=== PATIENT | male | born 1965 | race Two or more races ===

== ENCOUNTER 2016-10-26 18:13 | Emergency (ER) | payer MEDICAID ==
[~2016-10-26] VITALS: Ht 160 cm; Wt 68.0 kg
[2016-10-26 20:35] LABS: DEFINITIVE VIEW TRANSMISSION; Hematocrit 41.1 % (41.0-53.0); Hemoglobin 13.6 g/dL (13.5-17.5); Mean Corpuscular Hemoglobin 29.2 pg (28.0-32.0); Mean Corpuscular Volume 88.5 fL (80.0-100.0); Mean Platelet Volume 8.6 fL (7.4-10.4); Platelet Count (auto) 295 10^3/uL (140-450); Red Cell Distribution Width 12.4 % (11.6-16.0); White Blood Cell 9.6 10^3/uL (4.4-10.8)
[2016-10-26 20:54] LABS: Metamyelocytes % 0; Myelocytes % 0; Promyelocytes % 0; Reactive Lymphocytes 0
[2016-10-26 21:03] LABS: Albumin 3.7 g/dL (3.4-5.0); Bilirubin, Total 0.2 mg/dL (0.2-1.0); Calcium 8.4 mg/dL (8.5-10.1); Potassium 3.5 mmol/L (3.5-5.1); Total Protein 7.7 g/dL (6.4-8.2)
[2016-10-26 21:05] LABS: INR 0.99 (0.9-1.15); Partial Thromboplastin Time 26.2 sec (22.64-33.71); Prothrombin Time 10.2 sec (9.37-12.3)
[2016-10-26 23:01] LABS: Anisocytosis Slight; Platelet Estimate Adequate
[2016-10-27 00:59] VITALS: BP 139/92
== END 2016-10-27 01:24 | disposition short-term general hospital (02) ==
LOC: ER 18:19
DX: H34.8122 Central retinal vein occlusion, left eye, stable (principal); R51 Headache; Z88.0 Allergy status to penicillin; E78.5 Hyperlipidemia, unspecified
CPT/HCPCS: 36415; 70450; 80053; 85007; 85027; 85610; 85730

== ENCOUNTER 2019-06-14 19:28 | Emergency (ER) | payer MEDICAID ==
[~2019-06-14] VITALS: Ht 165.1 cm; Wt 61.7 kg
[2019-06-15 04:35] VITALS: BP 137/96
== END 2019-06-15 05:06 | disposition home or self-care (01) ==
LOC: ER 19:29
DX: J33.9 Nasal polyp, unspecified (principal); E78.5 Hyperlipidemia, unspecified; Z88.0 Allergy status to penicillin

== ENCOUNTER 2025-02-14 22:53 | Emergency (ER) | payer MEDICAID, OTHER ==
[~2025-02-14] VITALS: Ht 160 cm; Wt 68.2 kg
[2025-02-14] MEDS ORDERED: IBUP-1456 PO (23:42)
--- NOTE | 2025-02-14 23:43 | ED.PDOC ---
Musculoskeletal HPI Comments 59-year-old male presents to ER with complaints of left shoulder pain x 2 days. Patient states he started experiencing left shoulder pain 2 days ago after he finished "pushing a heavy object" at work. He rates her current pain a 10/10 to left shoulder without radiation. Notes he has been taking Tylenol for his pain with slight relief. Patient presents to ER ambulatory on arrival, with steady gait, in no distress. Denies shortness of breath, chest pain, numbness/tingling or any further symptoms/complaints Chief Complaint: Upper Extremity Time Seen by MD: 23:19 Primary Care Provider: CORINA Reviewed Notes: Nurses Notes, Medications, Allergies Allergies: Coded Allergies: Penicillins (Unverified Allergy, Unknown, 05/29/15) Home Meds Active Scripts Methylprednisolone (Medrol Dosepak) 4 Mg Maurizio, 4 MG PO UD, #21 TAB 0 Refills UAD Prov:JUSTIN SOLORZANO 02/15/25 Ibuprofen (Ibuprofen) 800 Mg Tab, 1 TAB PO TID PRN, #30 TAB 0 Refills Prov:JUSTIN SOLORZANO 02/14/25 Information Source: Patient Mode of Arrival: Ambulatory Past Medical History PAST MEDICAL HISTORY: High Lipids Surgical History: Denies all surgeries Family History Family History: Unknown Social History Smoker: Non-Smoker Alcohol: Occasionally Drugs: Denies Drug Use Lives In: Home Constitutional: denies: chills, diaphoresis, fatigue, fever, malaise, sweats, weakness, others EENTM: denies: blurred vision, double vision, ear bleeding, ear discharge, ear drainage, ear pain, ear ringing, eye pain, eye redness, hearing loss, mouth pain, mouth swelling, nasal discharge, nose bleeding, nose congestion, nose pain, photophobia, tearing, throat pain, throat swelling, voice changes, others Respiratory: denies: cough, hemoptysis, orthopnea, SOB at rest, shortness of breath, SOB with excertion, stridor, wheezing, others Cardiovascular: denies: chest pain, dizzy spells, diaphoresis, Dyspnea on exertion, edema, irregular heart beat, left arm pain, lightheadedness, palpitations, PND, syncope, others Gastrointestinal: denies: abdomen distended, abdominal pain, blood streaked bowels, constipated, diarrhea, dysphagia, difficulty swallowing, hematemesis, melena, nausea, poor appetite, poor fluid intake, rectal bleeding, rectal pain, vomiting, others Genitourinary: denies: burning, dysuria, flank pain, frequency, hematuria, incontinence, penile discharge, penile sore, pain, testicle pain, testicle swelling, urgency, others Neurological: denies: dizziness, fainting, headache, left sided numbness, left sided weakness, numbness, paresthesia, pre-existing deficit, right sided numbness, right sided weakness, seizure, speech problems, tingling, tremors, weakness, others Musculoskeletal: reports: others (As stated in HPI) Integumetry: denies: bruises, change in color, change in hair/nails, dryness, laceration, lesions, lumps, rash, wounds, others Allergic/Immunocompromised: denies: Difficulty Healing, Frequent Infections, Hives, Itching, others Hematologic/Lymphatic: denies: anemia, blood clots, easy bleeding, easy bruising, swollen glands, others Endocrine: denies: excessive hunger, excessive sweating, excessive thirst, excessive urination, flushing, intolerance to cold, intolerance to heat, unexplained weight gain, unexplained weight loss, others Psychiatric: denies: anxiety, bipolar disorder, depression, hopeless, panic disorder, schizophrenia, sleepless, suicidal, others Physical Exam General Appearance: No Apparent Distress HEENT: PERRL/EOMI Neck: Full Range of Motion, Non-Tender, Normal Respiratory: Chest Non-Tender, Lungs Clear, No Accessory Muscle Use, No Respiratory Distress, Normal Breath Sounds Cardiovascular: No Murmur, No Gallop, Regular Rate/Rhythm Breast Exam: Deferred Gastrointestinal: NOT DONE Genitalia: Deferred Pelvic: Deferred Rectal: Deferred Extremities: Normal capillary refill Musculoskeletal : Extremity Location: Shoulder (TTP to left GH joint noted. Positive Apley scratch test left shoulder. No deformity/skin changes noted. Pulses intact) Neurologic: Alert, server security administrator II-XII nml as Tested, No Motor Deficits, Normal Affect, Normal Mood, No Sensory Deficits Cerebellar Function: Normal Reflexes: Normal Skin: Dry, Normal Color, Warm Peripheral Pulses: 2+ Radial (R), 2+ Radial (L), 2+ Brachial (R), 2+ Brachial (L) Lymphatic: No Adenopathy Was a procedure done? Was a procedure done?: No Sedation Sedation?: No Differential Diagnosis EXT Differential Diagnosis: Fracture, Dislocation, Neurovascular injury X-Ray, Labs, Meds, VS Vital Signs Date Time Temp Pulse Resp B/P (MAP) Pulse Ox O2 Delivery O2 Flow Rate FiO2 02/14/25 23:49 77 16 96 Room Air 02/14/25 23:49 98.5 77 16 146/95 (112) 96 98.5 02/14/25 23:18 98.5 77 16 146/95 (112) 96 98.5 Current Medications Medications (Trade) Dose Ordered Sig/Clemente Route Start Time Stop Time Status Last Admin Ketorolac Tromethamine (Toradol Injection) 60 mg ONCE ONCE IM 02/14/25 23:45 02/14/25 23:46 DC 02/14/25 23:55 PATIENT: BONITA TREVIZO: [id number]: [id number] : 1965 LOC: ER ROOM / BED: / AGE / SEX: 59 / M ADM STATUS: REG ER SERVICE [id number] ORDERING PHYSICIAN: JUSTIN SOLORZANO PROCEDURE(s): LSHD2 - L SHOULDER 2+ VIEW XRAY REASON: Pain x2 days ORDER NUMBER(s): [id number], ACCESSION NUMBER(s): [id number] EXAM: XY L SHOULDER 2+ VIEW XRAY HISTORY: Pain x2 days COMPARISON: None TECHNIQUE: Four views of the left shoulder were performed. Findings/ IMPRESSION: No acute fracture or dislocation. Significant calcification near the greater tuberosity concerning for calcific tendinitis of the rotator cuff. ATED BY: NAJMA HUDSON DO DICTATED DATE/TIME: 02/15/2549 SIGNED BY: NAJMA HUDSON DO SIGNED DATE/TIME: 02/15/2549 CC: Left shoulder x-ray reviewed Patient neurovascularly intact and had improvement in symptoms prior to discharge Toradol 60 mg IM ordered Advised on rest/no strenuous activity, elevation and alternate ice on/off as needed for pain Left arm sling applied Advised to follow up with PCP and orthopedics in 1-2 days Patient verbalized understanding and agreeable with current plan of care Advised to return to ER immediately if symptoms worsen Images Reviewed?: Images reviewed and evaluated by me Time of 1ST Reevaluation: 23:20 Reevaluation 1ST: N/A Patient Education/Counseling: Diagnosis, Treatment, Prognosis, Need For Follow Up Family Education/Counseling: No Family Present Departure 1 Departure Time of Disposition: 23:42 Impression: Primary Impression: Left shoulder tendinitis Disposition: 01 HOME / SELF CARE / HOMELESS Condition: Stable e-Prescriptions Methylprednisolone (Medrol Dosepak) 4 Mg Maurizio 4 MG PO UD, #21 TAB 0 Refills UAD Prov: JUSTIN SOLORZANO 02/15/25 Ibuprofen (Ibuprofen) 800 Mg Tab 1 TAB PO TID PRN, #30 TAB 0 Refills Prov: JUSTIN SOLORZNAO 02/14/25 Discharged With: Friend Critical Care Note Critical Care Time?: No Stability Stability form required: No Heart Score Heart Score: Heart Score Response (Comments) Value History N/A 0 EKG N/A 0 Age N/A 0 Risk Factors N/A 0 Troponin N/A 0 Total 0 JUSTIN SOLORZANO February 14, 2025 23:43
[2025-02-14 23:49] VITALS: BP 146/95; PULSE 77; RESP 16; TEMP 98.5; O2SAT 96
[2025-02-14] MEDS: KETOROLAC TROMETH 60MG/2ML VIAL IM ONE (23:55)
--- NOTE | 2025-02-15 00:53 | DVH ---
EXAM: XY L SHOULDER 2+ VIEW XRAY HISTORY: Pain x2 days COMPARISON: None TECHNIQUE: Four views of the left shoulder were performed. Findings/ IMPRESSION: No acute fracture or dislocation. Significant calcification near the greater tuberosity concerning f or calcific tendinitis of the rotator cuff.
[2025-02-15] MEDS ORDERED: METH4PAK PO (00:59)
== END 2025-02-15 01:21 | disposition home or self-care (01) ==
LOC: ER 22:57
DX: M77.8 Other enthesopathies, not elsewhere classified (principal); E78.5 Hyperlipidemia, unspecified; Z79.899 Other long term (current) drug therapy; Z88.0 Allergy status to penicillin
CPT/HCPCS: 73030; 96372; 99283; J1885